=== PATIENT | female | born 2000 | race Two or more races ===

== ENCOUNTER 2020-07-30 21:35 | Emergency (ER) | payer SELFPAY ==
[2020-07-30] MEDS ORDERED: Ibuprofen 400 MG Tab PO ONE (22:35)
[2020-07-30] MEDS ORDERED: Acetaminophen 500 MG Tab PO ONE (22:35)
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
== END 2020-07-31 00:31 | disposition home or self-care (01) ==
LOC: MW.ED 21:35
DX: S06.0X9A Concussion with loss of consciousness of unspecified duration, initial encounter (principal); S00.81XA Abrasion of other part of head, initial encounter; S40.211A Abrasion of right shoulder, initial encounter; S80.212A Abrasion, left knee, initial encounter; S80.211A Abrasion, right knee, initial encounter; M54.2 Cervicalgia; V00.141A Fall from scooter (nonmotorized), initial encounter
CPT/HCPCS: 70450; 71045; 72125; 73030; 73560; 99284; A9270

== ENCOUNTER 2023-06-20 18:33 | Inpatient (IN) | payer SELFPAY ==
[2023-06-20 19:50] LABS: APPEARANCE,URINE CLEAR; BILIRUBIN,URINE NEGATIVE (NEGATIVE); COLOR,URINE YELLOW; GLUCOSE,URINE NEGATIVE (NEGATIVE); KETONES,URINE 40 mg/dL (NEGATIVE); LEUKOCYTE ESTERASE,URINE NEGATIVE (NEGATIVE); NITRITE,URINE NEGATIVE (NEGATIVE); OCCULT BLOOD,URINE NEGATIVE (NEGATIVE); PROTEIN,URINE NEGATIVE (NEGATIVE); UROBILINOGEN,URINE 0.2 EU/dL (<2.0)
[2023-06-20 20:00] LABS: RBC,URINE NONE SEEN (0-2/HPF); WBC,URINE NONE SEEN (0-5/HPF)
[2023-06-20 20:01] LABS: BACTERIA,URINE NOT SEEN (NEGATIVE); EPITHELIAL CELLS,URINE FEW (NONE-FEW)
[2023-06-20] MEDS ORDERED: Sodium Chloride 0.9% 2.5 ML Syringe FLUSH PRN (20:09)
[2023-06-20] MEDS ORDERED: Lidocaine 1% 50 ML MDV INJECT PRN (20:09)
[2023-06-20] MEDS ORDERED: Ampicillin 2 GM in Sodium Chloride 0.9% 100 ML IV ONE (20:09)
[2023-06-20] MEDS ORDERED: Sodium Chloride 0.9% 10 ML Syringe FLUSH PRN (20:09)
[2023-06-20] MEDS ORDERED: Water For Irrigation,Sterile 1,000 ML Container IRR PRN (20:09)
[2023-06-20] MEDS ORDERED: Methylergonovine 0.2 MG/1 ML Amp IM PRN (20:09)
[2023-06-20] MEDS ORDERED: Misoprostol 200 MCG Tab PO PRN (20:09)
[2023-06-20] MEDS ORDERED: Tranexamic Acid 1,000 MG in Sodium Chloride 0.9% 100 ML IV PRN (20:09)
[2023-06-20] MEDS ORDERED: Sodium Chloride 0.9% 20 ML SDV IV PRN (20:09)
[2023-06-20] MEDS ORDERED: Carboprost Tromethamine 250 MCG/1 mL Vial IM PRN (20:09)
[2023-06-20] MEDS ORDERED: Oxytocin/0.9 % Sodium Chloride 30 UNIT/500 ML BAG IV SCH ×2 (20:15→20:45)
[2023-06-20] MEDS ORDERED: Terbutaline 1 MG/ML SDV SUBCUT PRN (20:39)
[2023-06-20] MEDS ORDERED: Misoprostol 25 MCG (1/4 of 100 MCG) Tab VAG PRN ×2 (20:39)
[2023-06-20] MEDS ORDERED: Sodium Chloride 0.9% 100 ML ONE (20:52)
[2023-06-20] MEDS: Lactated Ringers 1,000 ML IV SCH (21:04)
[2023-06-20 21:36] LABS: HEMATOCRIT 36.6 % (36.0-46.0); MEAN CORPUSCULAR HEMOGLOBIN 27.8 pg (27.0-32.0); MEAN CORPUSCULAR HGB CONC 32.8 g/dL (31.0-37.0); MEAN CORPUSCULAR VOLUME 84.9 fL (80.0-98.0); MEAN PLATELET VOLUME 9.8 fL (7.40-12.00); RED BLOOD CELL COUNT 4.31 M/uL (4.30-5.90); WHITE BLOOD CELL COUNT,WBC 10.27 K/uL (4.0-11.0)
[2023-06-21] MEDS: Ampicillin 1 GM in Sodium Chloride 0.9% 50 ML IV SCH ×3 (01:11→08:58)
[2023-06-21 03:11] LABS: C. TRACHOMATIS BY PCR NOT DETECTED; N. GONORRHOEAE BY PCR NOT DETECTED
[2023-06-21] MEDS: Lactated Ringers 1,000 ML IV SCH ×2 (07:33→09:01)
[2023-06-21] MEDS ORDERED: ePHEDrine 50 MG/ML SDV IVPUSH PRN ×2 (07:39)
[2023-06-21] MEDS ORDERED: Ropivacaine HCl/PF 400 MG in Premix Bag 1 BAG EPIDUR SCH (07:45)
[2023-06-21] MEDS ORDERED: Dexmedetomidine 200 MCG/2 ML SDV ONE (07:56)
[2023-06-21] MEDS: Phenylephrine HCl 0.5 MG/5 ML AMP IVPUSH PRN ×2 (08:31→08:48)
[2023-06-21] MEDS ORDERED: Lanolin 100% Cream 7 GM Tube TOP PRN (12:49)
[2023-06-21] MEDS ORDERED: oxyCODONE 5 MG Tab PO PRN (12:49)
[2023-06-21] MEDS ORDERED: Witch Hazel Medicated Pads 40/Jar TOP PRN (12:49)
[2023-06-21] MEDS ORDERED: Ibuprofen 400 MG Tab PO PRN (12:49)
[2023-06-21] MEDS ORDERED: Benzocaine/Menthol 20%-0.5% Spray 78 GM Cannister TOP PRN (12:49)
[2023-06-21] MEDS ORDERED: Docusate Sodium 100 MG Cap PO PRN (12:49)
[2023-06-21] MEDS ORDERED: Acetaminophen 500 MG Tab PO PRN (12:49)
[2023-06-21] MEDS ORDERED: Bisacodyl 10 MG Supp RECTAL PRN (12:49)
[2023-06-21] MEDS: Ibuprofen 800 MG Tab PO PRN ×2 (13:11→20:07)
[2023-06-21 13:23] LABS: PH,UMBILICAL ARTERIAL 7.128 (7.18-7.38)
[2023-06-21 13:24] LABS: PH,UMBILICAL VENOUS 7.285 (7.25-7.45)
[2023-06-21 15:14] LABS: GROUP B STREP BY PCR NEGATIVE (NEGATIVE)
[2023-06-21 15:43] LABS: AMPHETAMINES SCREEN, URINE NEGATIVE (CUTOFF=500); BARBITURATE SCREEN,URINE NEGATIVE (CUTOFF=200); BENZODIAZEPINES SCREEN,URINE NEGATIVE (CUTOFF=150); BUPRENORPHINE SCREEN,URINE NEGATIVE (CUTOFF=10); METHADONE SCREEN, URINE NEGATIVE (CUTOFF=200); METHAMPHETAMINES SCREEN, URINE NEGATIVE (CUTOFF=500); OXYCODONE SCREEN,URINE NEGATIVE (CUT0FF=100); PCP SCREEN,URINE NEGATIVE (CUTOFF=25); PROPOXYPHENE SCREEN,URINE NEGATIVE (CUTOFF=300); THC SCREEN,URINE 20 NG/ML NEGATIVE (CUTOFF=50)
[2023-06-21] MEDS: Acetaminophen 500 MG Tab PO PRN ×2 (16:39→20:06)
[2023-06-22 05:46] LABS: HEMATOCRIT 31.6 % (36.0-46.0); HEMOGLOBIN 10.2 g/dL (12.0-16.0)
[2023-06-22] MEDS: Acetaminophen 500 MG Tab PO PRN (06:21)
[2023-06-22] MEDS: Ibuprofen 800 MG Tab PO PRN (06:21)
== END 2023-06-22 16:21 | disposition home or self-care (01) | DRG 807 ==
LOC: MW.OBCHECK 18:33 → MW.OB 18:33 → MW.OBCHECK 20:08 → MW.OB 20:09 → OBSVTOIN 06-21 12:25 → MW.OB 06-21 18:09
PROVIDERS: ADMIT Obstetrics & Gynecology; ATTEND Obstetrics & Gynecology
PROC: 10E0XZZ Delivery of Products of Conception, External Approach (ICD-10-PCS; principal; 2023-06-21)
PROC: 0KQM0ZZ Repair Perineum Muscle, Open Approach (ICD-10-PCS; 2023-06-21)
PROC: 3E033VJ Introduction of Other Hormone into Peripheral Vein, Percutaneous Approach (ICD-10-PCS; 2023-06-21)
PROC: 3E0P7VZ Introduction of Hormone into Female Reproductive, Via Natural or Artificial Opening (ICD-10-PCS; 2023-06-21)
PROC: 3E0R3BZ Introduction of Anesthetic Agent into Spinal Canal, Percutaneous Approach (ICD-10-PCS; 2023-06-21)
PROC: 00HU33Z Insertion of Infusion Device into Spinal Canal, Percutaneous Approach (ICD-10-PCS; 2023-06-21)
DX: O42.12 Full-term premature rupture of membranes, onset of labor more than 24 hours following rupture (principal); Z37.0 Single live birth; Z3A.39 39 weeks gestation of pregnancy; O70.1 Second degree perineal laceration during delivery; Z77.22 Contact with and (suspected) exposure to environmental tobacco smoke (acute) (chronic)
CPT/HCPCS: 36415; 51702; 59025; 59409; 76815; 76815-26; 80305-QW; 81001; 82803; 84112; 85014; 85018; 85027; 86592; 86706; 86762; 86850; 86900; 86901; 87340; 87389; 87491; 87591; 87653; A9270-GY; J0290; J2370; J2590; J3490; J7120